=== PATIENT | male | born 1955 | race Caucasian/White ===

== ENCOUNTER → 2025-02-27 12:09 | Outpatient (REF) | payer MEDICARE, BC, SELFPAY ==
[2025-02-27 13:34] LABS: Hematocrit 45.9 % (39.0-52.0); Hemoglobin 15.6 g/dL (13.0-18.0); Mean Corp Hgb Conc. 34.0 g/dL (33.0-37.0); Mean Corpuscular Volume 84.5 fL (80.0-94.0); Nucleated Red Blood Cells % 0 % (-); Platelet Count 247 10^3/uL (130-400); Red Cell Dist. Width 12.8 % (11.5-14.5)
[2025-02-27 13:58] LABS: ALT (SGPT) 24 U/L (0-50); AST (SGOT) 21 U/L (17-59); Albumin 4.1 g/dl (3.5-5.0); Alkaline Phosphatase 61 U/L (38-126); Blood Urea Nitrogen 18 mg/dl (9-20); Calcium 9.6 mg/dl (8.4-10.2); Carbon Dioxide 30 mmol/L (22-30); Chloride 103 mmol/L (98-107); Glucose 78 mg/dl (70-99); Potassium 4.1 mmol/L (3.5-5.1); Sodium 139 mmol/L (135-145); Total Protein 7.3 g/dl (6.3-8.2); eGFR > 60.00
== END ==
LOC: SDSPAT 12:09
PROVIDERS: ATTENDING PHYSICIAN Student in an Organized Health Care Education/Training Program; OTHER PHYSICIAN Internal Medicine Cardiovascular Disease
DX: R94.39 Abnormal result of other cardiovascular function study (principal)
CPT/HCPCS: 36415; 80053; 85025; 93005

== ENCOUNTER 2025-03-01 09:17 | Day surgery (SDC) | payer MEDICARE, BC, SELFPAY ==
[2025-02-27 12:30] VITALS: BMI 25.8
[2025-03-01] VITALS (8 sets, daily range): BP systolic 120–148; BP diastolic 66–78
--- NOTE | 2025-03-01 14:08 | PTCARENOTE ---
pts hr still 45-51. luann mcdonald aware and stated pts previous admissions his hr was in the 40's. and pt was stable when walked and voided . without complaint of any dizziness or diaphoresis. pt is ok to be discharged.
--- NOTE | 2025-03-01 19:13 | ITS.CL.PN ---
Addendum entered and electronically signed by Alon Jolly MD 03/01/25 19:27:
Correction: Access was 6F right common femoral vein (closure: Angioseal x1)
Original Note:
Dipper Machine Operator - Procedure Note
Procedure
Procedure Note:
CARDIAC CATHETERIZATION REPORT
Date of Procedure: 03/01/2025
Referring: Dr. Osorio Eubanks, DO
Indication: Known coronary artery disease, positive cardiac stress test
PROCEDURE(S)
1. left heart catheterization
2. coronary angiography
ACCESS: 6F right radial artery (closure: radial band)
CATHETERS
1. 6F JR4
2. 6F JL4
3. 6F ELMA
4. 6F pigtail
MODERATE SEDATION: 35 minutes of moderate sedation was utilized. An independent medical corps officer was present to assist with and help manage the patient's level of consciousness and physiologic status.
HEMODYNAMIC DATA
LV 149/11 (EDP 24) mmHg
AO 145/75 (mean 105) mmHg
CORONARY ANGIOGRAPHY
Dominance: Right
LM: Large with no significant disease.
LAD: Occluded proximally with the distal vessel supplied via the patent AGUAYO.
LCx: Large vessel giving rise to a moderate caliber OM1 and moderate caliber OM2. There is severe disease in the proximal aspect of OM1 and in the circumflex just after the OM1 takeoff. Competitive flow is visualized in the OM1 from the GREGORY graft.
There is weak competitive flow visualized in the OM 2 likely from right to left collaterals.
RCA: Moderate caliber vessel with distal total occlusion.
BYPASS GRAFT ANGIOGRAPHY:
AGUAYO-GREGORY Y-graft to LAD and OM1: the AGUAYO is taken as a pedicle and forms an anastomosis with the mid-LAD. A portion of GREGORY is anastomosed to the AGUAYO forming a Y-graft which goes on to supply a patent anastomosis to the OM1.
Radial-RDPA: Forms a patent anastomosis with the RPDA. Faint right to left collaterals to the OM2 are visualized.
SVG-OM2: Not able to be selectively engaged with JR4, AR1, AL1, and not seen on non-selective aortography and thus assumed to be chronically occluded.
RADIATION: dose 344 mGy; DAP 25.1 Gy*cm2; fluoroscopy time 11.3 min
CONCLUSIONS
1. Coronary artery disease status post bypass as described with occluded SVG-OM2 and patent AGUAYO-GREGORY competitive to LAD-OM1 and patent radial-RPDA.
2. Moderately elevated LV filling pressure and no aortic stenosis
RECOMMENDATIONS
1. Continued secondary prevention of coronary artery disease
Copy to: Dr. Osorio Eubanks DO (nut and bolt assembler)
Signed: Alon Jolly MD, PhD
== END 2025-03-01 18:15 | disposition home or self-care (01) ==
LOC: CATH 09:17
PROVIDERS: ATTENDING PHYSICIAN Student in an Organized Health Care Education/Training Program; OTHER PHYSICIAN Internal Medicine Cardiovascular Disease
DX: I25.10 Atherosclerotic heart disease of native coronary artery without angina pectoris (principal); E78.5 Hyperlipidemia, unspecified; I10 Essential (primary) hypertension; Z79.82 Long term (current) use of aspirin; I08.1 Rheumatic disorders of both mitral and tricuspid valves; Z79.899 Other long term (current) drug therapy; I25.810 Atherosclerosis of coronary artery bypass graft(s) without angina pectoris; Z86.0100 Personal history of colon polyps, unspecified; D72.829 Elevated white blood cell count, unspecified
CPT/HCPCS: 99152; 99153; 93459; C1760; C1769; C1894; Q9967